=== PATIENT | female | born 1975 | race Caucasian/White ===

== ENCOUNTER → 2017-01-20 | Outpatient (CLI) | payer OTHER ==
--- NOTE | 2017-01-25 08:59 | MM ---
Reason for exam: follow-up at short interval from prior study. History: Family history of breast cancer in paternal grandmother. Physical Findings: Nurse did not find any significant physical abnormalities on exam. MG Diagnostic Mammo LT w CAD CC and MLO view(s) were taken of the left breast. There are scattered fibroglandular densities. There is chronic nodularity in the left breast. No significant new findings when compared with previous films. These results were verbally communicated with the patient and result sheet given to the patient on 01/20/17. ASSESSMENT: Benign, BI-RAD 2 RECOMMENDATION: Routine screening mammogram of both breasts in 1 month. Back on schedule February 2017.
== END | disposition home or self-care (01) ==
LOC: RADMAMWWP 14:22
PROVIDERS: ATTEND Family Medicine
DX: N60.02 Solitary cyst of left breast (principal)

== ENCOUNTER → 2017-03-25 | Outpatient (CLI) | payer OTHER ==
--- NOTE | 2017-03-25 14:06 | MM ---
Reason for exam: screening (asymptomatic). Last mammogram was performed 2 months ago. History: Family history of breast cancer in paternal grandmother. Physical Findings: A clinical breast exam by your physician is recommended on an annual basis and results should be correlated with mammographic findings. MG Screening Mammo w CAD Bilateral CC and MLO view(s) were taken. Prior study comparison: January 20, 2017, left breast MG diagnostic mammo LT w CAD. There are scattered fibroglandular densities. Focal asymmetry, stable left breast. ASSESSMENT: Benign, BI-RAD 2 RECOMMENDATION: Routine screening mammogram of both breasts in 1 year.
== END | disposition home or self-care (01) ==
LOC: RADMAMWWP 07:01
PROVIDERS: ATTEND Family Medicine
DX: Z12.31 Encounter for screening mammogram for malignant neoplasm of breast (principal)

== ENCOUNTER → 2017-04-06 | Outpatient (CLI) | payer OTHER ==
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
== END | disposition home or self-care (01) ==
LOC: RADMRIMAIN 17:12
PROVIDERS: ATTEND Nurse Practitioner Acute Care
DX: M46.02 Spinal enthesopathy, cervical region (principal); R51 Headache
CPT/HCPCS: 70551; 72141

== ENCOUNTER 2017-08-04 18:34 | Emergency (ER) | payer OTHER ==
[2017-08-04] MEDS ORDERED: ONDANSETRON 4 MG/2 ML VIAL IVP STA (18:58)
[2017-08-04] MEDS ORDERED: SODIUM CHLORIDE 0.9% 1,000 ML IV STA (18:58)
[2017-08-04] MEDS ORDERED: DICYCLOMINE 10 MG/ML 2 ML AMP IM STA (18:59)
--- NOTE | 2017-08-04 19:07 | ED ---
General Adult HPI - General Source: patient, RN notes reviewed Mode of arrival: ambulatory Limitations: no limitations <Bertrand Schroeder - Last Filed: 08/04/17 19:51> <Eliot Gasca - Last Filed: 08/04/17 20:54> - General Chief complaint: Abdominal Pain Stated complaint: Abdominal pain/SOB Time Seen by Provider: 08/04/17 18:51 - History of Present Illness Initial comments: Patient is 41-year-old female who presents emergency room today with a chief complaint of abdominal pain. Patient is to some bloating and discomfort that started this morning. States she did take a Gas-X. Patient states that she's had several bouts of diarrhea since. She does admit to some discomfort in the epigastric area feeling nauseated. Patient admits to cramping in nature through the abdomen. Patient denies any signs of blood in the stool. Denies any other complaints associated symptoms currently. Patient denies any recent fever, chills, shortness of breath, chest pain, back pain, abdominal pain, nausea or vomiting, numbness or tingling, dysuria or hematuria, constipation, headaches or visual changes, or any other complaints. (Bertrand Schroeder) - Related Data Home Medications Medication Instructions Recorded Confirmed ALPRAZolam [Xanax] 1 mg PO HS 11/17/13 08/04/17 FLUoxetine HCL [PROzac] 20 mg PO TID 11/17/13 08/04/17 Gabapentin [Neurontin] 300 mg PO TID 05/18/17 08/04/17 HYDROcodone/APAP 10-325MG [[place] 1 tab PO BID PRN 05/18/17 08/04/17 10-325] Propranolol HCl [Propranolol HCl 60 mg PO DAILY 05/18/17 08/04/17 ER] Cyclobenzaprine [Flexeril] 10 mg PO TID PRN 08/04/17 08/04/17 Ergocalciferol (Vitamin D2) 50,000 unit PO Q30D 08/04/17 08/04/17 [Vitamin D2] Minocycline HCl [Minocin] 100 mg PO Q12HR 08/04/17 08/04/17 Omeprazole 20 mg PO DAILY 08/04/17 08/04/17 Previous Rx's Medication Instructions Recorded Zolpidem [Ambien] 10 mg PO HS PRN #10 tab 11/17/13 Dicyclomine [Bentyl] 10 mg PO TID PRN #10 capsule 08/04/17 Ondansetron Odt [Zofran Odt] 4 mg PO Q8HR PRN #12 tab 08/04/17 Allergies Allergy/AdvReac Type Severity Reaction Status Date / Time bee venom protein (honey bee) Allergy Swelling Verified 08/04/17 19:32 Review of Systems ROS Other: All systems not noted in ROS Statement are negative. <Bertrand Schroeder - Last Filed: 08/04/17 19:51> ROS Other: All systems not noted in ROS Statement are negative. <Eliot Gasca - Last Filed: 08/04/17 20:54> ROS Statement: Those systems with pertinent positive or pertinent negative responses have been documented in the HPI. Past Medical History Past Medical History: Hypertension Additional Past Medical History / Comment(s): TACHYCARDIA,BLOOD IN STOOL History of Any Multi-Drug Resistant Organisms: None Reported Past Surgical History: Cholecystectomy Past Anesthesia/Blood Transfusion Reactions: No Reported Reaction Past Psychological History: Anxiety, Depression Smoking Status: Former smoker Past Alcohol Use History: None Reported Past Drug Use History: Marijuana - Past Family History Father Family Medical History: Cancer Additional Family Medical History / Comment(s): THROAT CANCER <Bertrand Schroeder - Last Filed: 08/04/17 19:51> General Exam Limitations: no limitations <Bertrand Schroeder - Last Filed: 08/04/17 19:51> <Eliot Gasca - Last Filed: 08/04/17 20:54> - General Exam Comments Initial Comments: General: The patient is awake and alert, in no distress, and does not appear acutely ill. Eye: Pupils are equal, round and reactive to light, extra-ocular movements are intact. No nystagmus. There is normal conjunctiva bilaterally. No signs of icterus. Ears, nose, mouth and throat: There are moist mucous membranes and no oral lesions. Neck: The neck is supple, there is no tenderness or JVD. Cardiovascular: There is a regular rate and rhythm. No murmur, rub or gallop is appreciated. Respiratory: Lungs are clear to auscultation, respirations are non-labored, breath sounds are equal. No wheezes, stridor, rales, or rhonchi. Gastrointestinal: Mild tenderness in epigastric. No rebound tenderness. No guarding. No CVA tenderness. Musculoskeletal: Normal ROM, no tenderness. Strength 5/5. Sensation intact. Pulses equal bilaterally 2+. Neurological: A&O x 3. CN II-XII intact, There are no obvious motor or sensory deficits. Coordination appears grossly intact. Speech is normal. Skin: Skin is warm and dry and no rashes or lesions are noted. Psychiatric: Cooperative, appropriate mood & affect, normal judgment. (Bertrand Schroeder) Course <Bertrand Schroeder - Last Filed: 08/04/17 19:51> <Eliot Gasca - Last Filed: 08/04/17 20:54> Vital Signs 08/04/17 18:40 Temperature 97.3 F L Pulse Rate 78 Respiratory 16 Rate Blood Pressure 140/60 O2 Sat by Pulse 98 Oximetry - Reevaluation(s) Reevaluation #1: 08/04/17 19:51 Patient's labs pending at this time. Case discussed and signed out to attending physician Dr. Gasca. (Bertrand Schroeder) Medical Decision Making <Bertrand Schroeder - Last Filed: 08/04/17 19:51> - Lab Data Result diagrams: 08/04/17 19:25 08/04/17 19:25 - Radiology Data Radiology results: report reviewed (I did review the imaging and reports no acute findings.), image reviewed <Eliot Gasca - Last Filed: 08/04/17 20:54> - Medical Decision Making I did reevaluate patient. Patient is feeling improved. She does demonstrate evidence of gastroenteritis. Her daughter does have a very similar symptoms. She'll be discharged on appropriate medication she is on a pain contract will not be given narcotic pain medication. She will be placed on Bentyl and Zofran. (Eliot Gasca) - Lab Data Lab Results 08/04/17 08/04/17 08/04/17 Range/Units 19:25 19:25 19:25 WBC 11.5 H (3.8-10.6) k/uL RBC 5.36 (3.80-5.40) m/uL Hgb 15.6 (11.4-16.0) gm/dL Hct 48.9 H (34.0-46.0) % MCV 91.2 (80.0-100.0) fL MCH 29.1 (25.0-35.0) pg MCHC 31.9 (31.0-37.0) g/dL RDW 14.4 (11.5-15.5) % Plt Count 202 (150-450) k/uL Neutrophils % 86 % Lymphocytes % 8 % Monocytes % 4 % Eosinophils % 1 % Basophils % 0 % Neutrophils # 9.9 H (1.3-7.7) k/uL Lymphocytes # 1.0 (1.0-4.8) k/uL Monocytes # 0.4 (0-1.0) k/uL Eosinophils # 0.1 (0-0.7) k/uL Basophils # 0.0 (0-0.2) k/uL Sodium 139 (137-145) mmol/L Potassium 4.0 (3.5-5.1) mmol/L Chloride 110 H (98-107) mmol/L Carbon Dioxide 17 L (22-30) mmol/L Anion Gap 12 mmol/L BUN 12 (7-17) mg/dL Creatinine 0.74 (0.52-1.04) mg/dL Est GFR (MDRD) Af Amer >60 (>60 ml/min/1.73 sqM) Est GFR (MDRD) Non-Af >60 (>60 ml/min/1.73 sqM) Glucose 105 H (74-99) mg/dL Calcium 9.3 (8.4-10.2) mg/dL Total Bilirubin 0.5 (0.2-1.3) mg/dL AST 21 (14-36) U/L ALT 43 (9-52) U/L Alkaline Phosphatase 213 H (38-126) U/L Total Protein 6.7 (6.3-8.2) g/dL Albumin 3.5 (3.5-5.0) g/dL Amylase 39 (30-110) U/L Lipase 48 (23-300) U/L Urine Color Yellow Urine Appearance Clear (Clear) Urine pH 5.5 (5.0-8.0) Ur Specific [place] 1.014 (1.001-1.035) Urine Protein Negative (Negative) Urine Glucose (UA) Negative (Negative) Urine Ketones Negative (Negative) Urine Blood Negative (Negative) Urine Nitrite Negative (Negative) Urine Bilirubin Negative (Negative) Urine Urobilinogen <2.0 (<2.0) mg/dL Ur Leukocyte Esterase Negative (Negative) Disposition <Bertrand Schroeder - Last Filed: 08/04/17 19:51> <Eliot Gasca - Last Filed: 08/04/17 20:54> Clinical Impression: Gastroenteritis, Abdominal pain Disposition: HOME SELF-CARE Condition: Good Instructions: Abdominal Pain (ED), Gastroenteritis (ED) Prescriptions: Dicyclomine [Bentyl] 10 mg PO TID PRN #10 capsule PRN Reason: Pain Ondansetron Odt [Zofran Odt] 4 mg PO Q8HR PRN #12 tab PRN Reason: Nausea Referrals: Erwin Khan MD [Primary Care Provider] - 1-2 days
[2017-08-04 19:45] LABS: Appearance,Urine Clear (Clear); Bilirubin,Urine Negative (Negative); Blood,Urine Negative (Negative); Color,Urine Yellow; Glucose,Urine (UA) Negative (Negative); Ketones,Urine Negative (Negative); Leukocyte Esterase,Urine Negative (Negative); Nitrite,Urine Negative (Negative); PH, Urine 5.5 (5.0-8.0); Protein,Urine Negative (Negative); Specific Gravity,Urine 1.014 (1.001-1.035); Urobilinogen,Urine <2.0 mg/dL (<2.0)
[2017-08-04 19:49] LABS: Basophils % (A) 0 %; Eosinophils # (A) 0.1 k/uL (0-0.7); Eosinophils % (A) 1 %; HCT 48.9 % (34.0-46.0); HGB 15.6 gm/dL (11.4-16.0); Lymphocytes % (A) 8 %; MCH 29.1 pg (25.0-35.0); MCHC 31.9 g/dL (31.0-37.0); MCV 91.2 fL (80.0-100.0); Mean Platelet Volume 9.4; Monocytes # (A) 0.4 k/uL (0-1.0); Monocytes % (A) 4 %; Neutrophils # (A) 9.9 k/uL (1.3-7.7); Neutrophils % (A) 86 %; Platelet Count 202 k/uL (150-450); RBC 5.36 m/uL (3.80-5.40); RDW 14.4 % (11.5-15.5); WBC 11.5 k/uL (3.8-10.6)
[2017-08-04 19:54] LABS: ALT 43 U/L (9-52); AST 21 U/L (14-36); Albumin 3.5 g/dL (3.5-5.0); Alkaline Phosphatase 213 U/L (38-126); Amylase 39 U/L (30-110); Anion Gap 12 mmol/L; Blood Urea Nitrogen 12 mg/dL (7-17); Calcium 9.3 mg/dL (8.4-10.2); Carbon Dioxide 17 mmol/L (22-30); Chloride 110 mmol/L (98-107); Glucose 105 mg/dL (74-99); Lipase 48 U/L (23-300); Sodium 139 mmol/L (137-145); Total Bilirubin 0.5 mg/dL (0.2-1.3); Total Protein 6.7 g/dL (6.3-8.2)
--- NOTE | 2017-08-04 20:44 | XR ---
EXAMINATION TYPE: XR KUB DATE OF EXAM: 08/04/2017 COMPARISON: 07/24/2010 HISTORY: Epigastric pain TECHNIQUE: 2 views FINDINGS: There is no sign of intestinal obstruction or pneumoperitoneum. Fecal pattern is normal. Th ere are clips from cholecystectomy. Lung bases are clear. There are no pathologic calcifications over the kidneys. IMPRESSION: Nonacute abdomen. No change
[2017-08-04 21:18] VITALS: BP 118/57; PULSE 59; RESP 18; TEMP 98.7
== END 2017-08-04 21:20 | disposition home or self-care (01) ==
LOC: EC 18:34
DX: K52.9 Noninfective gastroenteritis and colitis, unspecified (principal); I10 Essential (primary) hypertension; F32.9 Major depressive disorder, single episode, unspecified; F41.9 Anxiety disorder, unspecified; Z90.49 Acquired absence of other specified parts of digestive tract; Z87.891 Personal history of nicotine dependence; Z91.030 Bee allergy status; Z79.899 Other long term (current) drug therapy
CPT/HCPCS: 36415; 80053; 82150; 83690; 85025; 81003; 74018; 99284; 96372; 96374; 96361; J0500; J2405; 82306; 82607; 84207; 84439; 84443; 84481

== ENCOUNTER → 2019-05-23 | Outpatient (CLI) | payer OTHER ==
--- NOTE | 2019-05-25 09:54 | MM ---
Reason for exam: screening (asymptomatic). Last mammogram was performed 2 years and 2 months ago. History: Family history of breast cancer in paternal grandmother. Physical Findings: A clinical breast exam by your physician is recommended on an annual basis and results should be correlated with mammographic findings. MG Screening Mammo w CAD Bilateral CC and MLO view(s) were taken. Prior study comparison: March 25, 2017, bilateral MG screening mammo w CAD. January 20, 2017, left breast MG diagnostic mammo LT w CAD. March 16, 2016, mammogram. There are scattered fibroglandular densities. There is no discrete abnormality. ASSESSMENT: Negative, BI-RAD 1 RECOMMENDATION: Routine screening mammogram of both breasts in 1 year.
== END | disposition home or self-care (01) ==
LOC: RADMAMWWP 16:20
PROVIDERS: ATTEND Family Medicine
DX: Z12.31 Encounter for screening mammogram for malignant neoplasm of breast (principal)
CPT/HCPCS: 77067

== ENCOUNTER 2019-07-02 13:12 | Emergency (ER) | payer OTHER ==
[2019-07-02] MEDS ORDERED: SODIUM CHLORIDE 0.9% 1,000 ML IV STA (14:17)
[2019-07-02] MEDS ORDERED: KETOROLAC 30 MG/ML 1 ML VIAL IVP STA (14:18)
--- NOTE | 2019-07-02 14:22 | ED ---
Recheck HPI - General Chief Complaint: Recheck/Abnormal Lab/Rx Stated Complaint: bitten by cat 1 month ago Time Seen by Provider: 07/02/19 13:39 Source: patient, RN notes reviewed, old records reviewed Mode of arrival: ambulatory Limitations: no limitations - History of Present Illness Initial Comments: This is a 43-year-old female is a poor strain secondary to history of chronic brain injury patient coming in for multiple complaints. She was mitigating a flu shot this year is medical history of head injury and some retrograde amnesia coming in with arm numbness and tingling. Right arm pain joint pain and diffuse body pain. No fevers. Patient does admit to being bit by Also sometime within the last month. States she just not feeling well despite medications that she takes normally for her symptoms. No nausea vomiting or diarrhea. No specific pain is generalized body aches and pains. Patient was also doing my research that made her nervous that she may have cat scratch disease MD Complaint: other (Patient not feeling well) -: days(s) Initial Visit For: animal bite (Right cat-bite) Returns Today for: persistent/worsening pain related to initial visit Symptoms Since Prior Visit: worsening pain Associated Symptoms: none - Related Data Home Medications Medication Instructions Recorded Confirmed ALPRAZolam [Xanax] 1 mg PO HS 11/17/13 08/04/17 FLUoxetine HCL [PROzac] 20 mg PO TID 11/17/13 08/04/17 Gabapentin [Neurontin] 300 mg PO TID 05/18/17 08/04/17 HYDROcodone/APAP 10-325MG [[place] 1 tab PO BID PRN 05/18/17 08/04/17 10-325] Propranolol HCl [Propranolol HCl 60 mg PO DAILY 05/18/17 08/04/17 ER] Cyclobenzaprine [Flexeril] 10 mg PO TID PRN 08/04/17 08/04/17 Ergocalciferol (Vitamin D2) 50,000 unit PO Q30D 08/04/17 08/04/17 [Vitamin D2] Minocycline HCl [Minocin] 100 mg PO Q12HR 08/04/17 08/04/17 Omeprazole 20 mg PO DAILY 08/04/17 08/04/17 Previous Rx's Medication Instructions Recorded Zolpidem [Ambien] 10 mg PO HS PRN #10 tab 11/17/13 Dicyclomine [Bentyl] 10 mg PO TID PRN #10 capsule 08/04/17 Ondansetron Odt [Zofran Odt] 4 mg PO Q8HR PRN #12 tab 08/04/17 Allergies Allergy/AdvReac Type Severity Reaction Status Date / Time bee venom protein (honey bee) Allergy Swelling Verified 07/02/19 13:33 Review of Systems ROS Statement: Those systems with pertinent positive or pertinent negative responses have been documented in the HPI. ROS Other: All systems not noted in ROS Statement are negative. Past Medical History Past Medical History: Hypertension Additional Past Medical History / Comment(s): TACHYCARDIA,BLOOD IN STOOL History of Any Multi-Drug Resistant Organisms: None Reported Past Surgical History: Cholecystectomy Past Anesthesia/Blood Transfusion Reactions: No Reported Reaction Past Psychological History: Anxiety, Depression Smoking Status: Former smoker Past Alcohol Use History: None Reported Past Drug Use History: Marijuana - Past Family History Father Family Medical History: Cancer Additional Family Medical History / Comment(s): THROAT CANCER General Exam Limitations: no limitations General appearance: alert, in no apparent distress Head exam: Present: atraumatic, normocephalic, normal inspection Eye exam: Present: normal appearance, PERRL, EOMI. Absent: scleral icterus, conjunctival injection, periorbital swelling ENT exam: Present: normal exam, mucous membranes moist Neck exam: Present: normal inspection. Absent: tenderness, meningismus, lymphadenopathy Respiratory exam: Present: normal lung sounds bilaterally. Absent: respiratory distress, wheezes, rales, rhonchi, stridor Cardiovascular Exam: Present: regular rate, normal rhythm, normal heart sounds. Absent: systolic murmur, diastolic murmur, rubs, gallop, clicks GI/Abdominal exam: Present: soft, normal bowel sounds. Absent: distended, tenderness, guarding, rebound, rigid Extremities exam: Present: normal inspection, full ROM, normal capillary refill. Absent: tenderness, pedal edema, joint swelling, calf tenderness Back exam: Present: normal inspection Neurological exam: Present: alert, oriented X3, CN II-XII intact Psychiatric exam: Present: normal affect, normal mood Skin exam: Present: warm, dry, intact, normal color. Absent: rash Course Vital Signs 07/02/19 13:33 Temperature 98.1 F Pulse Rate 74 Respiratory 16 Rate Blood Pressure 134/81 O2 Sat by Pulse 99 Oximetry Medical Decision Making - Lab Data Result diagrams: 07/02/19 14:30 07/02/19 14:30 Lab Results 07/02/19 07/02/19 07/02/19 Range/Units 14:30 14:30 14:30 WBC 6.7 (3.8-10.6) k/uL RBC 5.30 (3.80-5.40) m/uL Hgb 15.9 (11.4-16.0) gm/dL Hct 48.4 H (34.0-46.0) % MCV 91.4 (80.0-100.0) fL MCH 29.9 (25.0-35.0) pg MCHC 32.7 (31.0-37.0) g/dL RDW 12.0 (11.5-15.5) % Plt Count 179 (150-450) k/uL Neutrophils % 66 % Lymphocytes % 27 % Monocytes % 4 % Eosinophils % 1 % Basophils % 1 % Neutrophils # 4.4 (1.3-7.7) k/uL Lymphocytes # 1.8 (1.0-4.8) k/uL Monocytes # 0.3 (0-1.0) k/uL Eosinophils # 0.0 (0-0.7) k/uL Basophils # 0.0 (0-0.2) k/uL Sodium 138 (137-145) mmol/L Potassium 3.9 (3.5-5.1) mmol/L Chloride 108 H (98-107) mmol/L Carbon Dioxide 21 L (22-30) mmol/L Anion Gap 9 mmol/L BUN 10 (7-17) mg/dL Creatinine 0.85 (0.52-1.04) mg/dL Est GFR (CKD-EPI)AfAm >90 (>60 ml/min/1.73 sqM) Est GFR (CKD-EPI)NonAf 85 (>60 ml/min/1.73 sqM) Glucose 106 H (74-99) mg/dL Calcium 9.3 (8.4-10.2) mg/dL Phosphorus 2.6 (2.5-4.5) mg/dL Magnesium 2.0 (1.6-2.3) mg/dL Total Bilirubin 0.4 (0.2-1.3) mg/dL AST 33 (14-36) U/L ALT 45 H (4-34) U/L Alkaline Phosphatase 177 H (38-126) U/L Creatine Kinase 36 (30-135) U/L Troponin I <0.012 (0.000-0.034) ng/mL Total Protein 7.1 (6.3-8.2) g/dL Albumin 3.9 (3.5-5.0) g/dL Urine Color Urine Appearance (Clear) Urine pH (5.0-8.0) Ur Specific [place] (1.001-1.035) Urine Protein (Negative) Urine Glucose (UA) (Negative) Urine Ketones (Negative) Urine Blood (Negative) Urine Nitrite (Negative) Urine Bilirubin (Negative) Urine Urobilinogen (<2.0) mg/dL Ur Leukocyte Esterase (Negative) Urine RBC (0-5) /hpf Urine WBC (0-5) /hpf Ur Squamous Epith Cells (0-4) /hpf Urine Bacteria (None) /hpf Urine Mucus (None) /hpf Influenza Type A RNA (Not Detectd) Influenza Type B (PCR) (Not Detectd) 07/02/19 07/02/19 Range/Units 14:30 14:48 WBC (3.8-10.6) k/uL RBC (3.80-5.40) m/uL Hgb (11.4-16.0) gm/dL Hct (34.0-46.0) % MCV (80.0-100.0) fL MCH (25.0-35.0) pg MCHC (31.0-37.0) g/dL RDW (11.5-15.5) % Plt Count (150-450) k/uL Neutrophils % % Lymphocytes % % Monocytes % % Eosinophils % % Basophils % % Neutrophils # (1.3-7.7) k/uL Lymphocytes # (1.0-4.8) k/uL Monocytes # (0-1.0) k/uL Eosinophils # (0-0.7) k/uL Basophils # (0-0.2) k/uL Sodium (137-145) mmol/L Potassium (3.5-5.1) mmol/L Chloride (98-107) mmol/L Carbon Dioxide (22-30) mmol/L Anion Gap mmol/L BUN (7-17) mg/dL Creatinine (0.52-1.04) mg/dL Est GFR (CKD-EPI)AfAm (>60 ml/min/1.73 sqM) Est GFR (CKD-EPI)NonAf (>60 ml/min/1.73 sqM) Glucose (74-99) mg/dL Calcium (8.4-10.2) mg/dL Phosphorus (2.5-4.5) mg/dL Magnesium (1.6-2.3) mg/dL Total Bilirubin (0.2-1.3) mg/dL AST (14-36) U/L ALT (4-34) U/L Alkaline Phosphatase (38-126) U/L Creatine Kinase (30-135) U/L Troponin I (0.000-0.034) ng/mL Total Protein (6.3-8.2) g/dL Albumin (3.5-5.0) g/dL Urine Color Light Yellow Urine Appearance Clear (Clear) Urine pH 6.0 (5.0-8.0) Ur Specific [place] 1.005 (1.001-1.035) Urine Protein Negative (Negative) Urine Glucose (UA) Negative (Negative) Urine Ketones Negative (Negative) Urine Blood Negative (Negative) Urine Nitrite Negative (Negative) Urine Bilirubin Negative (Negative) Urine Urobilinogen <2.0 (<2.0) mg/dL Ur Leukocyte Esterase Moderate H (Negative) Urine RBC 3 (0-5) /hpf Urine WBC 2 (0-5) /hpf Ur Squamous Epith Cells 1 (0-4) /hpf Urine Bacteria Rare H (None) /hpf Urine Mucus Rare H (None) /hpf Influenza Type A RNA Not Detected (Not Detectd) Influenza Type B (PCR) Not Detected (Not Detectd) Disposition Clinical Impression: Weakness Disposition: HOME SELF-CARE Condition: Good Instructions (If sedation given, give patient instructions): Weakness (ED) Is patient prescribed a controlled substance at d/c from ED?: No Referrals: Erwin Khan MD [Primary Care Provider] - 1-2 days
[2019-07-02 15:22] LABS: Basophils % (A) 1 %; Eosinophils % (A) 1 %; HCT 48.4 % (34.0-46.0); HGB 15.9 gm/dL (11.4-16.0); Lymphocytes # (A) 1.8 k/uL (1.0-4.8); Lymphocytes % (A) 27 %; MCH 29.9 pg (25.0-35.0); MCHC 32.7 g/dL (31.0-37.0); MCV 91.4 fL (80.0-100.0); Monocytes # (A) 0.3 k/uL (0-1.0); Monocytes % (A) 4 %; Neutrophils # (A) 4.4 k/uL (1.3-7.7); Neutrophils % (A) 66 %; Platelet Count 179 k/uL (150-450); WBC 6.7 k/uL (3.8-10.6)
[2019-07-02 15:35] LABS: ALT 45 U/L (4-34); AST 33 U/L (14-36); African American GFR (CKD) >90 (>60 ml/min/1.73 sqM); Albumin 3.9 g/dL (3.5-5.0); Alkaline Phosphatase 177 U/L (38-126); Anion Gap 9 mmol/L; Blood Urea Nitrogen 10 mg/dL (7-17); Calcium 9.3 mg/dL (8.4-10.2); Carbon Dioxide 21 mmol/L (22-30); Chloride 108 mmol/L (98-107); Creatine Kinase 36 U/L (30-135); Glucose 106 mg/dL (74-99); Non-African American GFR(CKD) 85 (>60 ml/min/1.73 sqM); Phosphorus 2.6 mg/dL (2.5-4.5); Potassium 3.9 mmol/L (3.5-5.1); Sodium 138 mmol/L (137-145); Total Bilirubin 0.4 mg/dL (0.2-1.3); Total Protein 7.1 g/dL (6.3-8.2)
[2019-07-02 15:42] LABS: Appearance,Urine Clear (Clear); Bacteria,Urine Rare /hpf; Bilirubin,Urine Negative (Negative); Blood,Urine Negative (Negative); Color,Urine Light Yellow; Glucose,Urine (UA) Negative (Negative); Ketones,Urine Negative (Negative); Leukocyte Esterase,Urine Moderate (Negative); Mucus,Urine Rare /hpf; Nitrite,Urine Negative (Negative); Protein,Urine Negative (Negative); RBC,Urine 3 /hpf (0-5); Specific Gravity,Urine 1.005 (1.001-1.035); Squamous Epithelial Cell,Urine 1 /hpf (0-4); Urobilinogen,Urine <2.0 mg/dL (<2.0); WBC,Urine 2 /hpf (0-5)
[2019-07-02] MEDS ORDERED: DEXAMETHASONE SOD PHOSPHATE 10 MG/ML 1 ML VIAL IV STA (16:32)
[2019-07-02 16:44] VITALS: BP 141/101; PULSE 59; RESP 18; TEMP 97.8
== END 2019-07-02 16:45 | disposition home or self-care (01) ==
LOC: EC 13:12
DX: R53.1 Weakness (principal); R20.0 Anesthesia of skin; R20.1 Hypoesthesia of skin; M79.601 Pain in right arm; R52 Pain, unspecified; I10 Essential (primary) hypertension; F32.9 Major depressive disorder, single episode, unspecified; F41.9 Anxiety disorder, unspecified; Z87.891 Personal history of nicotine dependence; Z91.030 Bee allergy status; Z79.899 Other long term (current) drug therapy; Z86.79 Personal history of other diseases of the circulatory system; Z87.820 Personal history of traumatic brain injury; W55.01XA Bitten by cat, initial encounter
CPT/HCPCS: 36415; 80053; 82550; 83735; 84100; 84484; 85025; 81001; 87040; 87502; 99284; 96374; 96375; 96361 ×2; J1100; J1885

== ENCOUNTER → 2020-01-25 | Outpatient (CLI) | payer OTHER | END | disposition home or self-care (01) | LOC: LABWHC1 10:28 | PROVIDERS: ATTEND Family Medicine | DX: Z03.818 Encounter for observation for suspected exposure to other biological agents ruled out (principal) ==

== ENCOUNTER → 2021-09-17 | Outpatient (CLI) | payer OTHER ==
--- NOTE | 2021-09-24 10:45 | HM ---
HOLTER MONITOR REPORT This is a 24 hour Holter. No diary was provided. Predominant rhythm appears to be sinus with a heart rate ranging from 44 to 79 beats per minute. There were rare PACs and PVCs noted. There is no evidence of any bradyarrhythmia. There was no evidence of any SVT, VT or atrial fibrillation. FINAL IMPRESSION: This is unremarkable 24 hour DCG recording. MMODL / IJN: [id number] /
== END | disposition home or self-care (01) ==
LOC: RADECHMAIN 11:49
PROVIDERS: ATTEND Family Medicine
DX: I49.3 Ventricular premature depolarization (principal); I49.1 Atrial premature depolarization; Z82.49 Family history of ischemic heart disease and other diseases of the circulatory system
CPT/HCPCS: 93225; 93226

== ENCOUNTER → 2022-03-24 | Outpatient (CLI) | payer OTHER ==
[2022-03-25 02:52] LABS: African American GFR (CKD) 104.9 (60.0-200.0); Albumin/Globulin Ratio 1.53 (1.60-3.17); Anion Gap 11.6 mmol/L (10.00-18.00); BUN/Creat Ratio 21.29 Ratio (12.00-20.00); Blood Urea Nitrogen 16.8 mg/dL (9.0-27.0); Calcium 9.3 mg/dL (8.7-10.3); Carbon Dioxide 21.5 mmol/L (20.0-27.5); Globulin 2.6 g/dL (1.6-3.3); Non-African American GFR(CKD) 90.5 (60.0-200.0); Total Bilirubin 0.4 mg/dL (0.30-1.20); Total Protein 6.7 g/dL (6.2-8.2)
== END | disposition home or self-care (01) ==
LOC: LABWHC1 13:56
PROVIDERS: ATTEND Psychiatry & Neurology Neurology
DX: H53.8 Other visual disturbances (principal); R42 Dizziness and giddiness; R41.3 Other amnesia; R90.82 White matter disease, unspecified; R10.9 Unspecified abdominal pain
CPT/HCPCS: 36415; 80053; 82306; 82607; 84207

== ENCOUNTER 2022-08-09 13:34 | Emergency (ER) | payer OTHER ==
[2022-08-09 13:48] VITALS: RESP 18; TEMP 98.2
[2022-08-09 14:56] VITALS: PULSE 80
[2022-08-09] MEDS ORDERED: SODIUM CHLORIDE 0.9% 1,000 ML IV STA (15:52)
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
[2022-08-09 16:34] LABS: ALT 17 U/L (4-34); AST 19 U/L (14-36); Acetaminophen <10.0 ug/mL; African American GFR (CKD) >90 (>60 ml/min/1.73 sqM); Albumin 3.5 g/dL (3.5-5.0); Alcohol <10 mg/dL; Alkaline Phosphatase 87 U/L (38-126); Anion Gap 5 mmol/L; Basophils % (A) 0 %; Blood Urea Nitrogen 7 mg/dL (7-17); Calcium 8.9 mg/dL (8.4-10.2); Carbon Dioxide 26 mmol/L (22-30); Chloride 112 mmol/L (98-107); Eosinophils # (A) 0.1 k/uL (0-0.7); Eosinophils % (A) 1 %; Glucose 96 mg/dL (74-99); HCT 43.1 % (34.0-46.0); HGB 14.6 gm/dL (11.4-16.0); Lymphocytes # (A) 2.3 k/uL (1.0-4.8); Lymphocytes % (A) 29 %; MCH 30.8 pg (25.0-35.0); MCHC 33.9 g/dL (31.0-37.0); MCV 90.9 fL (80.0-100.0); Magnesium 2.1 mg/dL (1.6-2.3); Monocytes # (A) 0.3 k/uL (0-1.0); Monocytes % (A) 4 %; Neutrophils % (A) 63 %; Non-African American GFR(CKD) >90 (>60 ml/min/1.73 sqM); Platelet Count 152 k/uL (150-450); Potassium 3.4 mmol/L (3.5-5.1); RBC 4.74 m/uL (3.80-5.40); RDW 12.2 % (11.5-15.5); Salicylate <1.0 mg/dL; Sodium 143 mmol/L (137-145); Total Bilirubin 0.6 mg/dL (0.2-1.3); Total Protein 6.1 g/dL (6.3-8.2); WBC 7.9 k/uL (3.8-10.6)
--- NOTE | 2022-08-09 16:35 | CT ---
EXAMINATION TYPE: CT brain wo con CT DLP: 1082.4 mGycm, Automated exposure control for dose reduction was used. DATE OF EXAM: 08/09/2022 4:20 PM COMPARISON: 01/27/2015. 04/06/2017 MRI CLINICAL INDICATION:Female, 46 years old with history of seizure activity, seizure activity TECHNIQUE: Brain: Axial CT images of the brain were obtained with coronal and sagittal reformats created and rev iewed. Contrast used: None. Oral contrast used: None. FINDINGS: Brain: Extra-axial spaces: No abnormal extra-axial fluid collections. Ventricular system: Within normal limits Cerebral parenchyma: No acute intraparenchymal hemorrhage or mass effect. The acosta-white junction is well differentiated. Cerebellum: Unremarkable. Mass effect: No evidence of midline shift. Intracranial vasculature: unremarkable Soft tissues: Normal. Calvarium/osseous structures: No depressed skull fracture. Paranasal sinuses and mastoid air cells: Mild scattered paranasal sinus disease. Visualized orbits: Orbital contents are intact. IMPRESSION: No acute intracranial process.
[2022-08-09 17:11] LABS: Amphetamine Screen,Urine Not Detected (NotDetected); Barbiturate Screen,Urine Not Detected (NotDetected); Benzodiazepines Screen,Urine Detected (NotDetected); Cocaine Screen,Urine Not Detected (NotDetected); Methadone Screen, Urine Not Detected (NotDetected); Opiate Screen,Urine Not Detected (NotDetected); Oxycodone Screen, Urine Not Detected (NotDetected); Phencyclidine Screen,Urine Not Detected (NotDetected); Tricyclic Antidepressant,Urine Not Detected (NotDetected); Urn Cannabinoid Scrn Detected (NotDetected)
[2022-08-09 17:19] LABS: Appearance,Urine Clear (Clear); Bilirubin,Urine Negative (Negative); Blood,Urine Negative (Negative); Color,Urine Light Yellow; Glucose,Urine (UA) Negative (Negative); Ketones,Urine Negative (Negative); Leukocyte Esterase,Urine Negative (Negative); Nitrite,Urine Negative (Negative); Protein,Urine Negative (Negative); Specific Gravity,Urine 1.005 (1.001-1.035); Urobilinogen,Urine <2.0 mg/dL (<2.0)
[2022-08-09 18:58] VITALS: BP 120/80
== END 2022-08-09 18:59 | disposition home or self-care (01) ==
LOC: EC 13:34
DX: R56.9 Unspecified convulsions (principal); I10 Essential (primary) hypertension; F41.9 Anxiety disorder, unspecified; F32.A Depression, unspecified; F12.90 Cannabis use, unspecified, uncomplicated; Z91.030 Bee allergy status; Z79.899 Other long term (current) drug therapy; Z20.822 Contact with and (suspected) exposure to COVID-19
CPT/HCPCS: 36415; 93005; 80053; 83735; 85025; 81003; 80306; 80143; 87636; 80179; 70450; 99285; 96360; G0480; 80320

== ENCOUNTER → 2023-10-05 | Outpatient (CLI) | payer OTHER ==
--- NOTE | 2023-10-05 17:28 | CT ---
EXAMINATION TYPE: CT brain wo con CT DLP: 995.5 mGycm, Automated exposure control for dose reduction was used. DATE OF EXAM: 10/05/2023 4:36 PM COMPARISON: 08/09/2022. CLINICAL INDICATION:Female, 47 years old with history of R55 SYNCOPE, W19.XXXA FALLS, syncope TECHNIQUE: Brain: Axial CT images of the brain were obtained with coronal and sagittal reformats created and rev iewed. Contrast used: None. Oral contrast used: None. FINDINGS: Brain: Extra-axial spaces: No abnormal extra-axial fluid collections. Ventricular system: Within normal limits Cerebral parenchyma: No acute intraparenchymal hemorrhage or mass effect. The acosta-white junction is well differentiated. Cerebellum: Unremarkable. Mass effect: No evidence of midline shift. Intracranial vasculature: unremarkable Soft tissues: Normal. Calvarium/osseous structures: No depressed skull fracture. Paranasal sinuses and mastoid air cells: Mild scattered paranasal sinus disease. Visualized orbits: Orbital contents are intact. IMPRESSION: No acute intracranial process.
== END | disposition home or self-care (01) ==
LOC: RADCTMAIN 16:21
PROVIDERS: ATTEND Family Medicine
DX: S06.9XAA Unspecified intracranial injury with loss of consciousness status unknown, initial encounter (principal); R55 Syncope and collapse; W19.XXXA Unspecified fall, initial encounter
CPT/HCPCS: 70450

== ENCOUNTER 2025-02-01 16:25 | Emergency (ER) | payer OTHER ==
[2025-02-01 16:30] VITALS: TEMP 97.7
[2025-02-01] MEDS: SODIUM CHLORIDE 0.9% 1,000 ML IV ONE (16:56)
[2025-02-01] MEDS: ONDANSETRON 4 MG/2 ML VIAL IVP STA (16:57)
[2025-02-01] MEDS: HYDROmorphone 1 MG/ML 1 ML SYRINGE IVP STA (16:57)
--- NOTE | 2025-02-01 17:23 | CT ---
EXAMINATION TYPE: CT brain wo con CT DLP: 1227.3 mGycm, Automated exposure control for dose reduction was used. DATE OF EXAM: 02/01/2025 5:19 PM COMPARISON: The brain 10/05/2023, 08/09/2022, MRI brain C-spine 04/06/2017, MR brain 11/13/2015 CLINICAL INDICATION:Female, 49 years old with history of headache, headache TECHNIQUE: Brain: Multiple axial CT images of the brain were obtained without IV contrast. . Coronal and sagitta l reformats reviewed. FINDINGS: Brain: Extra-axial spaces: No abnormal extra-axial fluid collections. Ventricular system: Within normal limits Cerebral parenchyma: No acute intraparenchymal hemorrhage or mass effect. The acosta-white junction is well differentiated. Cerebellum: Unremarkable. Mass effect: No evidence of midline shift. Intracranial vasculature: unremarkable Soft tissues: Normal. Calvarium/osseous structures: No depressed skull fracture. Paranasal sinuses and mastoid air cells: Clear Visualized orbits: Orbital contents are intact. IMPRESSION: No acute intracranial process. [facility], , 02/01/2025 5:21 PM
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
--- NOTE | 2025-02-01 17:55 | CT ---
EXAMINATION TYPE: CT angio head CT DLP: 1109 mGycm, Automated exposure control for dose reduction was used. DATE OF EXAM: 02/01/2025 5:24 PM COMPARISON: CT brain 02/01/2025, 10/05/2023, 08/09/2022. CLINICAL INDICATION:Female, 49 years old with history of headache; PHH, headache TECHNIQUE: Axially acquired helical CT angiogram of the head was obtained with contrast utilizing 75 cc of Isovue-370 administered intravenously. Axial images are supplemented with 3D reconstructions wh ich were post-processed at an independent workstation. NASCET criteria used. FINDINGS: No evidence of acute intracranial hemorrhage, mass effect, or midline shift. The ventricles, sulci, a nd cisterns are unremarkable. The visualized portions of the internal carotid arteries, middle cerebral arteries, anterior cerebral arteries, and posterior cerebral arteries are patent. The basilar and vertebral arteries are patent. The vertebral arteries are codominant. IMPRESSION: No evidence of high-grade stenosis or intracranial aneurysm. [facility], , 02/01/2025 5:52 PM
[2025-02-01] MEDS: KETOROLAC 15 MG/ML 1 ML VIAL IVP STA (18:20)
[2025-02-01] MEDS: LORazepam 1 MG/0.5 ML VIAL IV STA (18:20)
[2025-02-01 18:59] VITALS: BP 141/80; PULSE 80; RESP 18
== END 2025-02-01 19:13 | disposition home or self-care (01) ==
LOC: EC 16:25
DX: G43.909 Migraine, unspecified, not intractable, without status migrainosus (principal); Z91.030 Bee allergy status
CPT/HCPCS: 70496; 70450; 99284; 96374; 96375; 96361; J2060; J2405; J1171; J1885; Q9967

== ENCOUNTER 2025-02-09 21:00 | Emergency (ER) | payer OTHER ==
[2025-02-09] MEDS: SODIUM CHLORIDE 0.9% 1,000 ML IV ONE (22:30)
[2025-02-09] MEDS: KETOROLAC 15 MG/ML 1 ML VIAL IVP STA (22:31)
[2025-02-09] MEDS: METOCLOPRAMIDE 5 MG/ML 2 ML VIAL IVP STA (22:31)
[2025-02-09] MEDS: diphenhydrAMINE 50 MG/ML 1 ML VIAL IVP STA (22:31)
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
[2025-02-10] MEDS: MORPHINE SULFATE 4 MG/ML SYRINGE IVP STA (00:53)
[2025-02-10 00:58] VITALS: RESP 16; TEMP 98
[2025-02-10] MEDS: KETOROLAC 15 MG/ML 1 ML VIAL IVP STA (01:57)
[2025-02-10] MEDS: HYDROmorphone 1 MG/ML 1 ML SYRINGE IVP STA (01:57)
[2025-02-10 02:03] VITALS: BP 147/68; PULSE 64
== END 2025-02-10 02:54 | disposition home or self-care (01) ==
LOC: EC 21:00
DX: R51.9 Headache, unspecified (principal); Z91.030 Bee allergy status
CPT/HCPCS: 99283; 96374; 96376; 96375; 96361; J2270; J1200; J2765; J1171; J1885 ×2; 99284

== ENCOUNTER 2025-02-10 12:36 | Emergency (ER) | payer OTHER ==
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
[2025-02-10] MEDS: SODIUM CHLORIDE 0.9% 1,000 ML IV STA (15:20)
[2025-02-10] MEDS: KETOROLAC 15 MG/ML 1 ML VIAL IVP STA (15:21)
[2025-02-10] MEDS: diphenhydrAMINE 50 MG/ML 1 ML VIAL IVP STA (15:21)
[2025-02-10] MEDS: METOCLOPRAMIDE 5 MG/ML 2 ML VIAL IVP STA (15:22)
[2025-02-10 17:10] VITALS: BP 152/80; PULSE 57; RESP 16; TEMP 98.8
== END 2025-02-10 17:29 | disposition home or self-care (01) ==
LOC: EC 12:36
DX: R51.9 Headache, unspecified (principal); F17.290 Nicotine dependence, other tobacco product, uncomplicated; Z91.030 Bee allergy status
CPT/HCPCS: 99283; 96374; 96375; 96361; J1200; J2765; J1885

== ENCOUNTER 2025-02-15 13:37 | Emergency (ER) | payer OTHER ==
[2025-02-15 13:45] VITALS: BP 183/64; PULSE 66; RESP 18; TEMP 97.7
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
[2025-02-15] MEDS: KETOROLAC 15 MG/ML 1 ML VIAL IVP STA (14:40)
[2025-02-15] MEDS: SODIUM CHLORIDE 0.9% 1,000 ML IV ONE (14:45)
[2025-02-15] MEDS: diphenhydrAMINE 50 MG/ML 1 ML VIAL IVP STA (14:46)
[2025-02-15] MEDS: MORPHINE SULFATE 4 MG/ML SYRINGE IVP STA (14:46)
[2025-02-15] MEDS: METOCLOPRAMIDE 5 MG/ML 2 ML VIAL IVP STA (14:46)
== END 2025-02-15 16:16 | disposition home or self-care (01) ==
LOC: EC 13:37
DX: G43.909 Migraine, unspecified, not intractable, without status migrainosus (principal); I10 Essential (primary) hypertension; F17.290 Nicotine dependence, other tobacco product, uncomplicated; Z91.030 Bee allergy status
CPT/HCPCS: 99283; 96374; 96375; 96361; J2270; J1200; J2765; J1885